=== PATIENT | male | born 1955 | race Caucasian/White ===

== ENCOUNTER 2024-08-01 12:25 | Outpatient (CLI) | payer MEDICARE ==
--- NOTE | 2024-08-01 15:43 | VASCULAR REPORT ---
EXAM: VASC VL VENOUS Clinical History: Swelling and pain of the left leg Comparison: None Technique: Duplex Doppler evaluation of the deep venous systems of left lower extremity from the comm on femoral veins to the popliteal veins including color Doppler and spectral/pulsed waveform analysis was performed. Findings: The common femoral vein demonstrates appropriate compressibility and waveform variability. There is compressibility/patency of the great saphenous vein at the proximal thigh. The femoral vein demonstrates appropriate compressibility and waveform variability. The deep femoral vein demonstrates appropriate compressibility and waveform variability. The popliteal vein demonstrates appropriate compressibility and waveform variability. There is color flow at the tibioperoneal trunk and in the posterior tibial vein. The contralateral right common femoral vein is patent demonstrating normal spontaneous suspicious pha sic flow and good augmentation. Impression: 1. No right or left femoropopliteal venous thrombosis.
== END 2024-08-01 23:59 | disposition home or self-care (01) ==
LOC: VAS 12:25
PROVIDERS: ATTEND Orthopaedic Surgery
DX: M79.605 Pain in left leg (principal); M16.12 Unilateral primary osteoarthritis, left hip; R22.42 Localized swelling, mass and lump, left lower limb
CPT/HCPCS: 93971